=== PATIENT | female | born 1970 | race Caucasian/White ===

== ENCOUNTER 2017-07-22 23:54 | Inpatient (IN) | payer MEDICAID ==
[~2017-07-22] VITALS: Ht 175.3 cm; Wt 131.4 kg
[2017-07-23 00:40] LABS: Urine Bacteria MANY /hpf (None Seen); Urine Blood 1+ /uL (Negative); Urine Mucus FEW (None Seen); Urine Specific Gravity 1.035 (1.001-1.035); Urine WBC 5 /hpf (0 - 5)
[2017-07-23 00:47] LABS: Basophils # (auto) 0.1 uL; Basophils % (auto) 0.4 % (0.0-2.0); Eosinophils # (auto) 0 uL; Hematocrit 43.2 % (36.0-46.0); Hemoglobin 14.4 g/dL (12.2-16.2); Lymphocytes # (auto) 1.9 uL; Lymphocytes % (auto) 12.9 % (10.0-50.0); Mean Corpuscular Hemoglobin 27.7 pg (28.0-32.0); Mean Corpuscular Hgb Conc. 33.4 g/dL (32.0-36.0); Mean Corpuscular Volume 83.1 fL (80.0-100.0); Monocytes # (auto) 0.6 uL; Monocytes % (auto) 4.1 % (0.0-12.0); Neutrophils # (auto) 12.4 uL; Neutrophils % (auto) 82.6 % (37.0-80.0); Nucleated Red Blood Cells % 0.1 %; Platelet Count (auto) 351 10^3/uL (140-450); Red Blood Cells 5.19 10^6/uL (4.0-5.20); Red Cell Distribution Width 14.9 % (11.8-14.3)
[2017-07-23 00:59] LABS: Alcohol, Urine < 3.0 mg/dL (0-5); Amphetamine Screen, Urine NEGATIVE (NEGATIVE); Barbiturate Scree,Urine NEGATIVE (NEGATIVE); Benzodiazephine Screen, Urine NEGATIVE (NEGATIVE); Cannabinoid Screen, Urine POSITIVE (NEGATIVE); Cocaine Screen, Urine NEGATIVE (NEGATIVE); Opiate Scree,Urine NEGATIVE (NEGATIVE); Phencyclidine Screen, Urine NEGATIVE (NEGATIVE)
[2017-07-23] MEDS ORDERED: KETOROLAC TROMETH 30 MG/ML 1ML VIAL IV ONE (01:00)
[2017-07-23] MEDS ORDERED: SODIUM CHLORIDE 0.9% 1,000 ML IV ONE (01:00)
[2017-07-23 01:04] LABS: Alanine Aminotransferase 42 U/L (13-56); Albumin 3.5 g/dL (3.4-5.0); Amylase 45 U/L (25-115); Anion Gap 11 (5-15); Aspartate Aminotransferase 20 U/L (15-37); BUN/Creatinine Ratio 16.9; Blood Urea Nitrogen 15 mg/dL (7-18); Calcium 8.5 mg/dL (8.5-10.1); Carbon Dioxide 22 mmol/L (21-32); Chloride 109 mmol/L (98-107); GFR African American 88 mL/min; GFR Non-African American 73 mL/min; Glucose 149 mg/dL (74-106); Lipase 155 U/L (73-393); Potassium 3.9 mmol/L (3.5-5.1); Sodium 142 mmol/L (136-145)
[2017-07-23 01:09] LABS: Alkaline Phosphatase 141 U/L (45-117); Bilirubin, Total 0.2 mg/dL (0.2-1.0); Total Protein 7.8 g/dL (6.4-8.2)
[2017-07-23] MEDS ORDERED: fentaNYL CITRATE 100 MCG/2 ML VL ONE (01:28)
[2017-07-23] MEDS ORDERED: fentaNYL CITRATE 100 MCG/2 ML VL IV ONE (01:30)
[2017-07-23] MEDS ORDERED: metroNIDAZOLE 500MG/100ML 100 ML IV ONE ×2 (01:30→02:30)
[2017-07-23] MEDS ORDERED: CIPROFLOXACIN 400MG/200ML 200 ML IV ONE ×2 (01:30→02:38)
[2017-07-23] MEDS ORDERED: LORazepam 2MG/ML-1ML VIAL IV ONE (03:00)
[2017-07-23] MEDS ORDERED: ACETAMINOPHEN 500 MG TAB PO PRN (04:30)
[2017-07-23] MEDS: HYDROmorphone HCL 2 MG/ML VL IV PRN ×4 (05:35→21:28)
[2017-07-23] MEDS: ONDANSETRON HCL 4 MG/2 ML VIAL IV PRN (05:35)
[2017-07-23] MEDS: SODIUM CHLORIDE 0.9% 1,000 ML IV SCH ×3 (05:37→21:28)
[2017-07-23 05:56] VITALS: BP 165/88
[2017-07-23] MEDS ORDERED: HCTZ25T PO (06:04)
[2017-07-23] MEDS ORDERED: ASPI-378 PO (06:04)
[2017-07-23] MEDS ORDERED: LISI-275 PO (06:05)
[2017-07-23 06:24] VITALS: BP 165/88
[2017-07-23] MEDS: metroNIDAZOLE 500MG/100ML 100 ML IV SCH ×3 (07:00→21:28)
[2017-07-23 09:00] VITALS: BP 140/85
[2017-07-23] MEDS ORDERED: cefTRIAXone 1GM/10ml IVPUSH 10 ML IV SCH (09:00)
[2017-07-23] MEDS: LEVOFLOXACIN 500MG 100 ML IV SCH (10:13)
[2017-07-23] MEDS ORDERED: ENALAPRILAT 1.25 MG/ML-1ML VIAL IV PRN (12:45)
[2017-07-23 13:00] VITALS: BP 124/70
[2017-07-23] MEDS ORDERED: GASTROGRAFIN 120 ML SOL ONE (13:26)
[2017-07-23] MEDS: PANTOPRAZOLE 40 MG/10 ML VIAL IV SCH (14:12)
[2017-07-23 17:54] VITALS: BP 156/69
[2017-07-23 21:56] VITALS: BP 137/81
[2017-07-24] MEDS: HYDROmorphone HCL 2 MG/ML VL IV PRN ×4 (04:13→19:42)
[2017-07-24 04:59] VITALS: BP 147/71
[2017-07-24] MEDS: metroNIDAZOLE 500MG/100ML 100 ML IV SCH ×3 (05:40→22:00)
[2017-07-24 07:01] LABS: INR 0.98 (0.9-1.15); Partial Thromboplastin Time 27.1 sec (23.78-33.04); Prothrombin Time 10.5 sec (9.27-12.13)
[2017-07-24 07:15] LABS: Basophils # (auto) 0 uL; Basophils % (auto) 0.1 % (0.0-2.0); Eosinophils # (auto) 0 uL; Hematocrit 41.4 % (36.0-46.0); Hemoglobin 13.6 g/dL (12.2-16.2); Lymphocytes # (auto) 2.3 uL; Lymphocytes % (auto) 30.8 % (10.0-50.0); Mean Corpuscular Hemoglobin 27.8 pg (28.0-32.0); Mean Corpuscular Hgb Conc. 32.8 g/dL (32.0-36.0); Mean Corpuscular Volume 84.9 fL (80.0-100.0); Monocytes # (auto) 0.5 uL; Monocytes % (auto) 7.1 % (0.0-12.0); Neutrophils # (auto) 4.5 uL; Nucleated Red Blood Cells % 0.1 %; Platelet Count (auto) 310 10^3/uL (140-450); Red Blood Cells 4.87 10^6/uL (4.0-5.20); Red Cell Distribution Width 15.3 % (11.8-14.3); White Blood Cell 7.3 10^3/uL (4.4-10.8)
[2017-07-24 07:39] LABS: BUN/Creatinine Ratio 27.1; Potassium 3.7 mmol/L (3.5-5.1)
[2017-07-24 09:00] VITALS: BP 138/72
[2017-07-24] MEDS: PANTOPRAZOLE 40 MG/10 ML VIAL IV SCH (09:17)
[2017-07-24] MEDS: LEVOFLOXACIN 500MG 100 ML IV SCH (09:17)
[2017-07-24] MEDS: ONDANSETRON HCL 4 MG/2 ML VIAL IV PRN ×2 (09:18→15:58)
[2017-07-24] MEDS: SODIUM CHLORIDE 0.9% 1,000 ML IV SCH ×2 (10:49→19:43)
[2017-07-24 12:35] VITALS: BP 124/77
[2017-07-24 17:00] VITALS: BP 140/66
[2017-07-24 22:27] VITALS: BP 127/64
[2017-07-25] MEDS: HYDROmorphone HCL 2 MG/ML VL IV PRN ×3 (00:34→09:49)
[2017-07-25] MEDS: metroNIDAZOLE 500MG/100ML 100 ML IV SCH (05:03)
[2017-07-25 06:02] VITALS: BP 133/77
[2017-07-25] MEDS: SODIUM CHLORIDE 0.9% 1,000 ML IV SCH (06:45)
[2017-07-25 07:22] LABS: Basophils # (auto) 0 uL; Basophils % (auto) 0.1 % (0.0-2.0); Eosinophils # (auto) 0 uL; Hematocrit 38.9 % (36.0-46.0); Lymphocytes # (auto) 2.4 uL; Lymphocytes % (auto) 31.7 % (10.0-50.0); Mean Corpuscular Hemoglobin 27.8 pg (28.0-32.0); Mean Corpuscular Hgb Conc. 33.4 g/dL (32.0-36.0); Mean Corpuscular Volume 83.2 fL (80.0-100.0); Monocytes # (auto) 0.6 uL; Monocytes % (auto) 7.3 % (0.0-12.0); Neutrophils # (auto) 4.6 uL; Neutrophils % (auto) 60.9 % (37.0-80.0); Nucleated Red Blood Cells % 0.1 %; Platelet Count (auto) 278 10^3/uL (140-450); Red Blood Cells 4.67 10^6/uL (4.0-5.20); Red Cell Distribution Width 15.1 % (11.8-14.3); White Blood Cell 7.6 10^3/uL (4.4-10.8)
[2017-07-25 07:54] LABS: Potassium 3.6 mmol/L (3.5-5.1)
[2017-07-25 08:15] VITALS: BP 144/72
[2017-07-25] MEDS: PANTOPRAZOLE 40 MG/10 ML VIAL IV SCH (09:49)
[2017-07-25] MEDS: LEVOFLOXACIN 500MG 100 ML IV SCH (09:50)
[2017-07-25] MEDS: ONDANSETRON HCL 4 MG/2 ML VIAL IV PRN (09:50)
[2017-07-25 12:43] VITALS: BP 134/69
[2017-07-25 16:54] VITALS: BP 148/70
[2017-07-25] MEDS: HYDROcodone-ACET 5/325MG TAB PO PRN (18:50)
[2017-07-25] MEDS: LISINOPRIL 5 MG TAB PO SCH (21:11)
[2017-07-25 22:00] VITALS: BP 139/78
[2017-07-25] MEDS ORDERED: KETOROLAC TROMETH 30 MG/ML 1ML VIAL IV ONE (23:15)
[2017-07-26 05:00] VITALS: BP 139/71
[2017-07-26] MEDS: HYDROcodone-ACET 5/325MG TAB PO PRN ×2 (06:40→10:34)
[2017-07-26] MEDS: HYDROmorphone HCL 2 MG/ML VL IV PRN ×2 (07:33→11:15)
[2017-07-26 09:00] VITALS: BP 139/90
[2017-07-26 09:51] VITALS: BP 139/78
[2017-07-26] MEDS ORDERED: PANTOPRAZOLE 40 MG TAB PO SCH (10:00)
[2017-07-26] MEDS: LISINOPRIL 5 MG TAB PO SCH (10:42)
== END 2017-07-26 13:15 | disposition home or self-care (01) | DRG 254 ==
LOC: ER 23:54 → TELE 23:55 → EAST 07-23 05:00
PROVIDERS: ADMIT Nurse Practitioner Family; ATTEND Internal Medicine
DX: K43.6 Other and unspecified ventral hernia with obstruction, without gangrene (principal); E27.8 Other specified disorders of adrenal gland; K76.0 Fatty (change of) liver, not elsewhere classified; E11.65 Type 2 diabetes mellitus with hyperglycemia; N30.00 Acute cystitis without hematuria; Z68.41 Body mass index [BMI] 40.0-44.9, adult; K46.9 Unspecified abdominal hernia without obstruction or gangrene; I10 Essential (primary) hypertension; F12.10 Cannabis abuse, uncomplicated; E66.01 Morbid (severe) obesity due to excess calories; Z79.82 Long term (current) use of aspirin; Z80.8 Family history of malignant neoplasm of other organs or systems; Z90.710 Acquired absence of both cervix and uterus; Z79.899 Other long term (current) drug therapy; Z88.1 Allergy status to other antibiotic agents; Z98.51 Tubal ligation status
CPT/HCPCS: 36415; 74176; 74250; 80048; 80053; 80307; 81001; 82150; 83690; 84484; 85025; 85610; 85730; 87086; 96361; 96365; 96375; C9113; J1885; J1956; J2405; J3490